=== PATIENT | male | born 1970 | race Caucasian/White ===

== ENCOUNTER 2020-11-19 12:05 | Emergency (ER) | payer BC ==
[~2020-11-19] VITALS: Ht 185.4 cm; Wt 105.2 kg
--- NOTE | 2020-11-19 12:17 | NUR ---
DR B[place]MINGHAM AT BEDSIDE FOR MD ESCALANTE
--- NOTE | 2020-11-19 12:17 | NUR ---
BIBS FROM HOME TO ER BED 6. AAOX4. NOT IN RESP DISTRESS, BREATHING EVEN AND UNLABORED. AMBULATORY. CAME IN FOR SPITTING UP BLOOD THIS MORNING. PER PT, HE WOKE, COUGHED AND NOTED DARK RED BLOOD IN HIS SPUTUM X 3 EPISODE. EVERSINCE THEN, HE HASNT HAD AN EPISODE FOR BLOODY SPUTUM. PT IS NOT COMPLAINING OF SOB, SATTING @ 95% ON RA. PT REPORTED THAT HE RECOVERED FROM COVID ABOUT A WEEK AGO. WAS AT THE BEDSIDE FOR EVAL. ORDERS RECEIVED, NOTED AND CARRIED OUT. IV LINE ESATBLIHED ON THE L AC 18G, BLOOD DRAWN AND SENT TO LAB. PT ON MONITOR.
--- NOTE | 2020-11-19 12:18 | NUR ---
LINE STARTED ON L AC G 18, BLOOD DRAWN FROM LINE AND SENT TO LAB
[2020-11-19 12:46] LABS: BASOPHILS # (AUTO) 0.1 K/uL (0.0-0.2); BASOPHILS % (AUTO) 1.1 % (0.0-2.0); EOSINOPHILS % (AUTO) 1.5 % (0.0-6.0); HEMATOCRIT 43 % (39-51); HEMOGLOBIN 14.7 g/dL (13.5-17.5); LYMPHOCYTES # (AUTO) 1.5 K/uL (0.8-4.8); LYMPHOCYTES % (AUTO) 23.1 % (20.0-44.0); MEAN CORPUSCULAR HGB CONC 34 g/dl (31.0-36.0); MEAN CORPUSCULAR VOLUME 92 fL (80-96); MONOCYTES # (AUTO) 0.6 K/uL (0.1-1.30); MONOCYTES % (AUTO) 9.2 % (2.0-12.0); NEUTROPHILS # (AUTO) 4.3 K/uL (1.8-8.9); NEUTROPHILS % (AUTO) 65.1 % (43.0-81.0); PLATELET COUNT (AUTO) 326 K/uL (150-450); RED BLOOD CELL COUNT(AUTO) 4.74 MIL/uL (4.5-6.0); WHITE BLOOD COUNT (AUTO) 6.7 K/uL (4.3-11.0)
[2020-11-19 13:03] LABS: CALCIUM, SERUM 9.1 mg/dL (8.5-10.1); CARBON DIOXIDE 27 mmol/L (21-32); CHLORIDE 104 mmol/L (98-107); CREATININE 1.2 mg/dL (0.6-1.3); GLUCOSE 114 mg/dL (74-106); POTASSIUM 3.9 mmol/L (3.5-5.1); SODIUM SERUM 139 mmol/L (136-145); UREA NITROGEN, BLOOD 14 mg/dL (7-18)
[2020-11-19] MEDS ORDERED: IOHEXOL-350 100 ML VIAL IV ONE (13:16)
[2020-11-19] MEDS ORDERED: IV NS 0.9% 250 ML IV ONE (13:16)
--- NOTE | 2020-11-19 14:47 | NUR ---
Patient discharged to home in stable condition. Written and verbal after care instructions given. Patient verbalizes understanding of instruction.IV removed. Catheter intact and site benign. Pressure and 4x4 applied to site. No bleeding noted. Pt ambulatory with a steady gait
[2020-11-19 14:48] VITALS: BP 118/72
== END 2020-11-19 14:48 | disposition home or self-care (01) ==
LOC: ER 12:11
DX: U07.1 COVID-19 (principal); R04.2 Hemoptysis
CPT/HCPCS: 36415; 71275; 80048; 84484; 85025; 85730; 86850; 99285; J7050; Q9967